=== PATIENT | female | born 1965 | race Caucasian/White ===

== ENCOUNTER 2017-12-21 17:25 | Emergency (ER) | payer BC ==
[~2017-12-21] VITALS: Ht 162.6 cm; Wt 54.4 kg
[2017-12-21 17:25] VITALS: BP_SYST 151
[2017-12-21] MEDS ORDERED: IBUPROFEN 600 MG TABLET PO ONE (18:00)
[2017-12-21 18:55] VITALS: BP_SYST 145
== END 2017-12-21 18:55 | disposition home or self-care (01) ==
LOC: SED 17:25
DX: S20.219A Contusion of unspecified front wall of thorax, initial encounter (principal); R03.0 Elevated blood-pressure reading, without diagnosis of hypertension; V43.52XA Car driver injured in collision with other type car in traffic accident, initial encounter; Y93.89 Activity, other specified; Y92.411 Interstate highway as the place of occurrence of the external cause; Y99.8 Other external cause status
CPT/HCPCS: 71045; 93005; 99284